=== PATIENT | female | born 1965 | race Caucasian/White ===

== ENCOUNTER → 2017-05-21 | Outpatient (CLI) | payer OTHER | END | disposition disaster alternative care site (69) | LOC: GBCOE 11:41 | DX: Z12.31 Encounter for screening mammogram for malignant neoplasm of breast (principal) | CPT/HCPCS: G0202 ==

== ENCOUNTER 2017-06-27 23:15 | Emergency (ER) | payer OTHER ==
--- NOTE | ~2017-06-27 | ER ---
PATIENT'S NAME: RUFINO WADE [facility] AGE: 51 Y [address] ROOM: [place] [address] LOCATION: [facility] ADMIT DATE: 06/27/2017 ER/Outpatient Report DISCHARGE DATE: 06/27/2017 FAMILY PHYSICIAN: Ward Acosta MD ATTENDING PHYSICIAN: Amos Howard Time of Arrival: 2317 hours. Time of Exam: 2320 hours. CHIEF COMPLAINT: Headache. HISTORY OF PRESENT ILLNESS: The patient states approximately 1 hour prior to arrival she developed a frontal headache. She has been quite nauseated, has not vomited. Has had some photophobia. She reports this is similar to headaches that she has had in the past. She reports that her headaches have been well controlled with her current medication, Zanaflex. ALLERGIES: SHE HAS NO KNOWN ALLERGIES. CURRENT MEDICATIONS: Zanaflex. PAST MEDICAL HISTORY: Migraine headache. PAST SURGERIES: Left knee surgery, breast reduction, tonsillectomy, hysterectomy, and cholecystectomy. SOCIAL HISTORY: She denies use of tobacco, drugs, or alcohol. REVIEW OF SYSTEMS: Negative other than those mentioned in the HPI. PHYSICAL EXAMINATION: VITAL SIGNS: She weighed 90 kg. Blood pressure is 177/88, pulse of 110, respirations 18, temperature of 96.8 tympanic, O2 saturation is 97% on room air. [place] Coma Scale is 15. GENERAL: She is awake, alert, and oriented x3. SKIN: [place], warm, and dry. RESPIRATIONS: Even and nonlabored. Lung sounds are clear throughout. PATIENT'S NAME: RUFINO WADE [facility] AGE: 51 Y [address] ROOM: [place] [address] LOCATION: [facility] ADMIT DATE: 06/27/2017 ER/Outpatient Report DISCHARGE DATE: 06/27/2017 FAMILY PHYSICIAN: Ward Acosta MD ATTENDING PHYSICIAN: Amos Howard HEART: Regular rate and rhythm. EXTREMITIES: The patient moves all extremities strongly and equally. NEUROLOGIC: She walked in with a steady even gait. EMERGENCY ROOM COURSE: She is given Toradol 60 mg IM and Nubain 10 mg IM and Phenergan 50 mg IM. IMPRESSION: 1. Migraine headache. 2. Nausea. PLAN: Home, rest, fluids. Continue her current medications. Follow up with her primary provider in the next 2 to 3 days if symptoms persist or worsen. She verbalized understanding. SEAN JAQUEZ APRN FOR [facility]/floyd /[id number] d: 06/28/17 0036 t: 07/01/17 1519, OUTPATIENT REPORT
== END 2017-06-27 23:33 | disposition disaster alternative care site (69) ==
LOC: GMED 23:15
DX: G43.909 Migraine, unspecified, not intractable, without status migrainosus (principal); Z90.89 Acquired absence of other organs; Z98.890 Other specified postprocedural states; Z90.49 Acquired absence of other specified parts of digestive tract; Z90.710 Acquired absence of both cervix and uterus
CPT/HCPCS: J1885; J2300; J2550